=== PATIENT | male | born 1950 | race Caucasian/White ===

== ENCOUNTER 2025-07-06 01:27 | Emergency (ER) | payer OTHER ==
[2025-07-06 01:31] VITALS: BP 134/66; PULSE 69; RESP 17; TEMP 98.8; BMI 23.6
[2025-07-06] MEDS: LIDOCAINE 5% TOPICAL PATCH TP ONE (02:40)
[2025-07-06] MEDS ORDERED: LIDOCAINE 5% TOPICAL PATCH ONE (02:41)
[2025-07-06] MEDS ORDERED: LIDOCAINE PATCH REMOVAL MC SCH (22:00)
== END 2025-07-06 03:52 | disposition left against medical advice (07) ==
LOC: FER 01:27
DX: S22.41XA Multiple fractures of ribs, right side, initial encounter for closed fracture (principal); R09.1 Pleurisy; W01.198A Fall on same level from slipping, tripping and stumbling with subsequent striking against other object, initial encounter
CPT/HCPCS: 70450-TC; 71250-TC; 72125-TC; 99284-25